=== PATIENT | male | born 1975 | race Caucasian/White ===

== ENCOUNTER 2024-12-11 08:04 | Outpatient (CLI) | payer BC | END 2024-12-11 08:05 | disposition home or self-care (01) | LOC: CSHWCC 08:04 | PROVIDERS: ATTEND Nurse Practitioner Family | DX: S31.102D Unspecified open wound of abdominal wall, epigastric region without penetration into peritoneal cavity, subsequent encounter (principal); D50.9 Iron deficiency anemia, unspecified | CPT/HCPCS: 97597; 99213; G0463 ==